=== PATIENT | female | born 1960 | race Asian ===

== ENCOUNTER 2017-05-17 12:23 | Emergency (ER) | payer OTHER ==
[2017-05-17 15:01] VITALS: BP 137/88
--- NOTE | 2017-05-17 15:02 | UC ---
Abdominal Pain Female HPI - HPI Summary HPI Summary: 57 y/o female presents to the urgent care c/o abdominal pain and multiple episodes of diarrhea for the past 3 days. Pt reports she hasn't eating anything for the past 2 days, only drinking water. Pain now is 6/10 sharp and diffuse in all abdomen w/o any radiation. She also has fever, body aches, nausea and FALLON. Pt denies SOB, chest pain, urinary symptoms, Hx of kidney stones, vaginal discharge, Hx of STD's. - History of Current Complaint Chief Complaint: UCAbdominalPain Stated Complaint: DIARRHEA, ABDOMINAL PAIN, FEVER, AND ACHES Time Seen by Provider: 05/17/17 14:49 Hx Obtained From: Patient Hx Last Menstrual Period: menopausal ?: No Onset/Duration: Gradual Onset, Lasting Days - 3 days, Still Present, Worse Since - 2 days Timing: Constant Severity Initially: Moderate Severity Currently: Moderate Pain Intensity: 6 Pain Scale Used: 0-10 Numeric Location: Diffuse Radiates: No Character: Sharp Aggravating Factor(s): Other: - laying down Alleviating Factor(s): OTC Analgesics Associated Signs and Symptoms: Positive: Fever, Diarrhea - multiple episodes of dirrhea Allergies/Adverse Reactions: Allergies Allergy/AdvReac Type Severity Reaction Status Date / Time Acetaminophen [From Tylenol] Allergy Severe Difficulty Verified 05/17/17 21:46 Breathing PMH/Surg Hx/FS Hx/Imm Hx Previously Healthy: Yes Endocrine History: Dyslipidemia - Surgical History Surgical History: Yes Surgery Procedure, Year, and Place: partial thyroidectomy 2001 - Family History Known Family History: Positive: None - pt denies FMHX - Social History Occupation: Employed Full-time Lives: Alone Alcohol Use: None Substance Use Type: None Smoking Status (MU): Never Smoked Tobacco Have You Smoked in the Last Year: No - Immunization History Most Recent Influenza Vaccination: none Review of Systems Constitutional: Fever, Chills, Fatigue Skin: Negative Eyes: Negative ENT: Negative Respiratory: Negative Cardiovascular: Negative Gastrointestinal: Abdominal Pain - diffuse, Diarrhea - multiple episodes, Nausea Genitourinary: Negative Motor: Negative Musculoskeletal: Negative Neurological: Headache Psychological: Negative Is Patient Immunocompromised?: No All Other Systems Reviewed And Are Negative: Yes Physical Exam Triage Information Reviewed: Yes Vital Signs: Initial Vital Signs Temp 97.4 F 05/17/17 12:44 Pulse 101 05/17/17 12:44 Resp 18 05/17/17 12:44 BP 113/75 05/17/17 12:44 Pulse Ox 100 05/17/17 12:44 - Additional Comments Vital Signs Reviewed: Yes General:Patient is a well developed and nourished thin female who is sitting in the examining table crying with apparent pain distress. Eyes: Positive: Conjunctiva Clear - PERRLA, EOMI, fundi grossly normal ENT: Positive: Normal ENT inspection, Hearing grossly normal, Pharynx normal, TMs normal Neck: Positive: Supple, Nontender, No Lymphadenopathy Respiratory: Positive: Chest non-tender, Lungs clear, Normal breath sounds, No respiratory distress Cardiovascular: Positive: RRR,S1 and S2 present, No Murmur, Pulses Normal, Brisk Capillary Refill Abdomen Description: Positive: Abd: Flat with no distention. No surface trauma, scars, incisions. hyperactive bowel sounds present in all four quadrants. tenderness to palpation in all quadrants LF>RT, no guarding, rigidity to palpation. No masses palpated, no pulsation in epigastric area. No organomegaly. Negative Castile signs. No periumbilical tenderness. No rebound in the lower quadrants. mild Tenderness over McBurneys point. Good femoral pulses bilaterally. No hernia noted. No CVAT bilaterally Musculoskeletal: Positive: Strength Intact, ROM Intact, No Edema,FROM in all major joints, no edema, no cyanosis or clubbing. Neuro: Alert and oriented x 3. No acute neurological deficits. Speech is normal. Psycological: WNL Skin: Dry and warm Abd Pain Female Course/Dx - Course Course Of Treatment: 57 y/o female presents to the urgent care c/o abdominal pain and multiple episodes of diarrhea for the past 3 days. Pt reports she hasn' t eating anything for the past 2 days, only drinking water. Pain now is 6/10 sharp and diffuse in all abdomen w/o any radiation. She also has fever, body aches, nausea and FALLON. Pt denies SOB, chest pain, urinary symptoms, Hx of kidney stones, vaginal discharge, Hx of STD's, blood in the stool. Hx obtained. Pt with postive RLQ and LLQ tenderness on palpation LF>RT , no guarding. Pt is tachycardic, and anxious due to pain. Dr Willis consulted on Pt's symptoms and he recommended Pt to go to the ER to r/o appendicitis or Diverticulitis or further evaluation and treatment. Pt offered ambulance transfer and Pt declined and states she will go by private car. Pt advised on the risks of not going to the ER. Pt understood and agreed with plan of care and stated she will go immediately to ER. Pt left the clinic hemodynamically stable and A&OX3 - Differential Dx/Diagnosis Differential Diagnosis: Appendicitis, Diverticulitis, Gall Bladder Disease, Renal Colic, Urinary Tract Infection Provider Diagnoses: 1- Acute abdominal pain. 2- diarrhea. 3-Headache - Physician Notification/Consults Discussed Care of Patient With: Tomas Willis - DR Willis agreed with Pt's plan of care Discharge - Discharge Plan Condition: Stable Disposition: OTHER Discharge Disposition Comment: Highly recommended Pt to go to [facility] ER for further treatment. Patient Education Materials: Acute Abdominal Pain (ED) Forms: *Work Release Referrals: No Primary Care Phys,NOPCP [Primary Care Provider] - Additional Instructions: I strongly recommend you to go to the [facility] ER for further evaluation and treatment to r/o appendicitis, or diverticulitis. The risks of not going can be or sepsis. You declined ambulance transfer.
== END 2017-05-17 15:38 ==
LOC: UCEAST 12:23
DX: R10.31 Right lower quadrant pain (principal); R10.32 Left lower quadrant pain; R19.7 Diarrhea, unspecified; R51 Headache
CPT/HCPCS: 81003; 99212; G0463

== ENCOUNTER 2017-05-17 16:07 | Emergency (ER) | payer OTHER ==
[2017-05-17] MEDS ORDERED: Ondansetron INJ* 2 MG/ML VIAL IV ONE (19:29)
[2017-05-17] MEDS ORDERED: NS 0.9% 1000 ML* 1,000 ML IV ONE (19:29)
[2017-05-17] MEDS ORDERED: Morphine INJ* 2 MG/ML 1 ML CARPUJECT IV ONE ×2 (19:29→19:59)
[2017-05-17] MEDS ORDERED: Morphine INJ* 2 MG/ML 1 ML SYRINGE (TWO MG - NEW SYRINGE VERSION) ONE (19:58)
[2017-05-17 20:01] LABS: Hematocrit 42 % (35-47); Hemoglobin 14.2 g/dl (12.0-16.0); Mean Corpuscular HGB Conc 34 g/dl (31-36); Mean Corpuscular Hemoglobin 29 pg (27-31); Mean Corpuscular Volume 86 fL (80-97); Mean Platelet Volume 7 um3 (7.4-10.4); Red Blood Count 4.89 10^6/ul (4.0-5.4); Red Cell Distribution Width 14 % (10.5-15); White Blood Count 8.7 10^3/ul (3.5-10.8)
[2017-05-17 20:15] LABS: BUN/Creatinine Ratio 15.9 (8-20); Calcium 8.9 mg/dL (8.6-10.3); EGFR African American 124.8 (>60); EGFR Non-African American 97.1 (>60); Globulin 3.1 g/dL (2-4); Potassium 3.3 mmol/L (3.5-5.0); Total Bilirubin 0.9 mg/dL (0.2-1.0); Total Protein 7.1 g/dL (6.4-8.9)
[2017-05-17] MEDS ORDERED: Potassium Chlor TAB* 20 MEQ TAB.ER PO ONE (20:16)
--- NOTE | 2017-05-17 20:52 | RAD ---
HISTORY: Fever COMPARISONS: October 24, 2004 VIEWS: 4: Frontal dual-energy and lateral views of the chest. FINDINGS: CARDIOMEDIASTINAL SILHOUETTE: The cardiomediastinal silhouette is normal. JOSEPHINE: The ojsephine are normal. PLEURA: The costophrenic angles are sharp. No pleural abnormalities are noted. LUNG PARENCHYMA: There is hyperinflation with flattening of the diaphragm and expansion of the AP diameter of the chest. ABDOMEN: The upper abdomen is clear. There is no subphrenic gas. BONES AND SOFT TISSUES: No bone or soft tissue abnormalities are noted. OTHER: None. IMPRESSION: HYPERINFLATION. NO ACTIVE CARDIOPULMONARY DISEASE.
[2017-05-17] MEDS ORDERED: Iohexol 300* (CONTRAST) 10 ML SDV IV ONE (21:16)
[2017-05-17 21:35] VITALS: BP 100/73
--- NOTE | 2017-05-17 22:04 | RAD ---
CLINICAL HISTORY: Diffuse abdominal pain COMPARISON: None TECHNIQUE: Multiple contiguous axial CT scans were obtained of the abdomen and pelvis after the administration of intravenous contrast. Coronal and sagittal multiplanar reformations are submitted for review. Oral contrast was administered. Delayed images were obtained through the abdomen and pelvis. FINDINGS: LUNG BASES: The lung bases are clear. LIVER: The liver is diffusely low in attenuation compared to the spleen. There are no focal hepatic parenchymal masses. BILE DUCTS: There is no intrahepatic or extrahepatic biliary dilatation. GALLBLADDER: The gallbladder is normal, without pericholecystic inflammatory change. PANCREAS: The pancreas is normal, without mass or ductal dilatation. SPLEEN: Normal in size and appearance. UPPER GI TRACT: Evaluation of the gastrointestinal tract is limited by incomplete gastric distention. There is low-attenuation fluid within the body of the stomach. While this may represent ingested food, mucosal thickening may give a similar appearance. SMALL BOWEL AND MESENTERY: The small bowel is normal in contour, course, and caliber. There is no obstruction or dilatation. COLON: There is diffuse mucosal thickening of the ascending colon. There is a tubular, vermiform, hollow viscus that is blind ending, and originates from the cecum, consistent with a normal appendix. There is no periappendiceal inflammatory change. This is best seen on axial images 46 through 52. ADRENALS: Normal bilaterally. KIDNEYS: The kidneys are normal in shape, size, contour, and axis. There is no hydronephrosis or nephrolithiasis. BLADDER: The bladder is smooth in contour. PELVIC ORGANS: The uterus and adnexa are grossly normal for technique. AORTA: The aorta is normal. IVC: Unremarkable LYMPH NODES: There is no lymphadenopathy by size criteria. ABDOMINAL WALL: There is no evidence for abdominal wall hernia. BONES AND SOFT TISSUES: There are mild diffuse degenerative changes. OTHER: None IMPRESSION: 1. MUCOSAL THICKENING OF THE ASCENDING COLON SUGGESTIVE OF COLITIS. 2. NORMAL APPENDIX. 3. THERE IS LOW-ATTENUATION MATERIAL WITHIN THE LUMEN OF THE STOMACH WHICH LIKELY REPRESENTS INGESTED FOOD, THOUGH EVALUATION IS LIMITED ON CT AND MUCOSAL THICKENING MAY GIVE A SIMILAR APPEARANCE. RECOMMEND CONSIDERATION OF CORRELATION WITH DIRECT VISUALIZATION OR DOUBLE CONTRAST FLUOROSCOPY STUDY AND THE NONACUTE SETTING. 4. FATTY LIVER
[2017-05-17] MEDS ORDERED: Omeprazole CAP* 20 MG PO ONE (22:19)
--- NOTE | 2017-05-17 22:51 | ED ---
Brody Pennington Stephanie, scribed for León Jimenez on 05/17/17 at 1937 . Abdominal Pain/Female - HPI Summary HPI Summary: The pt is a 57 y/o F presenting to the ED with c/o abdominal pain that began 3 days ago. Symptoms include fever that began two days ago, nausea, diarrhea (for 2 days), and feeling very cold. The pt denies vomiting or the recent use of abx. She reports not eating for two days. - History of Current Complaint Chief Complaint: EDAbdPain Stated Complaint: VOMITING/DIARRHEA Time Seen by Provider: 05/17/17 19:17 Hx Obtained From: Patient Hx Last Menstrual Period: menopausal Onset/Duration: Lasting Days - 3, Still Present Timing: Constant Pain Intensity: 6 Pain Scale Used: 0-10 Numeric Location: Diffuse Aggravating Factor(s): Food Alleviating Factor(s): Nothing Associated Signs and Symptoms: Positive: Fever, Decreased Appetite, Nausea, Diarrhea, Other: - feeling cold. Negative: Vomiting Allergies/Adverse Reactions: Allergies Allergy/AdvReac Type Severity Reaction Status Date / Time Acetaminophen [From Tylenol] Allergy Severe Difficulty Verified 05/17/17 21:46 Breathing PMH/Surg Hx/FS Hx/Imm Hx Previously Healthy: No Endocrine/Hematology History: Reports: Hx Thyroid Disease - hx of thyroid tumor - noncancerous Sensory History: Denies: Hx Deafness Opthamlomology History: Denies: Hx Legally Blind EENT History: Denies: Hx Deafness - Cancer History Hx Chemotherapy: No Hx Radiation Therapy: No - Surgical History Surgery Procedure, Year, and Place: partial thyroidectomy 2001 Infectious Disease History: No Infectious Disease History: Denies: History Other Infectious Disease, Traveled Outside the [place] in Last 30 Days - Family History Known Family History: Positive: Other - no breast CA - Social History Alcohol Use: None Hx Substance Use: No Substance Use Type: Reports: None Hx Tobacco Use: No Smoking Status (MU): Never Smoked Tobacco Have You Smoked in the Last Year: No Review of Systems Positive: Chills. Negative: Fever Positive: Abdominal Pain, Diarrhea, Nausea. Negative: Vomiting All Other Systems Reviewed And Are Negative: Yes Physical Exam - Summary Physical Exam Summary: Appearance: Well appearing, no pain distress Skin: warm, dry, reflects adequate perfusion Head/face: normal Eyes: EOMI, MARLENI ENT: normal Neck: supple, non-tender Respiratory: CTA, breath sounds present Cardiovascular: RRR, pulses symmetrical Abdomen: diffuse tenderness in abdomen Bowel: present Musculoskeletal: normal, strength/ROM intact Neuro: normal, sensory motor intact, A&Ox3 Triage Information Reviewed: Yes Vital Signs On Initial Exam: Initial Vitals Temp Pulse Resp BP Pulse Ox 97.2 F 95 19 113/84 100 05/17/17 16:10 05/17/17 16:10 05/17/17 16:10 05/17/17 16:10 05/17/17 16:10 Vital Signs Reviewed: Yes Diagnostics - Vital Signs Vital Signs Temp Pulse Resp BP Pulse Ox 05/17/17 19:14 87 19 97 05/17/17 19:12 113/81 05/17/17 17:57 98.6 F 100 19 118/81 98 05/17/17 16:10 97.2 F 95 19 113/84 100 - Laboratory Lab Results: Lab Results 05/17/17 05/17/17 05/17/17 Range/Units 19:49 19:49 19:49 WBC 8.7 (3.5-10.8) 10^3/ul RBC 4.89 (4.0-5.4) 10^6/ul Hgb 14.2 (12.0-16.0) g/dl Hct 42 (35-47) % MCV 86 (80-97) fL MCH 29 (27-31) pg MCHC 34 (31-36) g/dl RDW 14 (10.5-15) % Plt Count 217 (150-450) 10^3/ul MPV 7 L (7.4-10.4) um3 Neut % (Auto) 81.2 (38-83) % Lymph % (Auto) 14.2 L (25-47) % [place] % (Auto) 3.9 (1-9) % Eos % (Auto) 0 (0-6) % Baso % (Auto) 0.7 (0-2) % Absolute Neuts (auto) 7.1 (1.5-7.7) 10^3/ul Absolute Lymphs (auto) 1.2 (1.0-4.8) 10^3/ul Absolute Monos (auto) 0.3 (0-0.8) 10^3/ul Absolute Eos (auto) 0 (0-0.6) 10^3/ul Absolute Basos (auto) 0.1 (0-0.2) 10^3/ul Absolute Nucleated RBC 0 10^3/ul Nucleated RBC % 0 INR (Anticoag Therapy) 0.90 (0.77-1.02) APTT 29.6 (26.0-36.3) seconds Sodium 134 (133-145) mmol/L Potassium 3.3 L (3.5-5.0) mmol/L Chloride 102 (101-111) mmol/L Carbon Dioxide 23 (22-32) mmol/L Anion Gap 9 (2-11) mmol/L BUN 10 (6-24) mg/dL Creatinine 0.63 (0.51-0.95) mg/dL Est GFR ( Amer) 124.8 (>60) Est GFR (Non-Af Amer) 97.1 (>60) BUN/Creatinine Ratio 15.9 (8-20) Glucose 115 H (70-100) mg/dL Lactic Acid (0.5-2.0) mmol/L Calcium 8.9 (8.6-10.3) mg/dL Total Bilirubin 0.90 (0.2-1.0) mg/dL AST 27 (13-39) U/L ALT 22 (7-52) U/L Alkaline Phosphatase 55 (34-104) U/L Total Protein 7.1 (6.4-8.9) g/dL Albumin 4.0 (3.2-5.2) g/dL Globulin 3.1 (2-4) g/dL Albumin/Globulin Ratio 1.3 (1-3) Lipase 35 (11.0-82.0) U/L /15/17 Range/Units 19:49 WBC (3.5-10.8) 10^3/ul RBC (4.0-5.4) 10^6/ul Hgb (12.0-16.0) g/dl Hct (35-47) % MCV (80-97) fL MCH (27-31) pg MCHC (31-36) g/dl RDW (10.5-15) % Plt Count (150-450) 10^3/ul MPV (7.4-10.4) um3 Neut % (Auto) (38-83) % Lymph % (Auto) (25-47) % [place] % (Auto) (1-9) % Eos % (Auto) (0-6) % Baso % (Auto) (0-2) % Absolute Neuts (auto) (1.5-7.7) 10^3/ul Absolute Lymphs (auto) (1.0-4.8) 10^3/ul Absolute Monos (auto) (0-0.8) 10^3/ul Absolute Eos (auto) (0-0.6) 10^3/ul Absolute Basos (auto) (0-0.2) 10^3/ul Absolute Nucleated RBC 10^3/ul Nucleated RBC % INR (Anticoag Therapy) (0.77-1.02) APTT (26.0-36.3) seconds Sodium (133-145) mmol/L Potassium (3.5-5.0) mmol/L Chloride (101-111) mmol/L Carbon Dioxide (22-32) mmol/L Anion Gap (2-11) mmol/L BUN (6-24) mg/dL Creatinine (0.51-0.95) mg/dL Est GFR ( Amer) (>60) Est GFR (Non-Af Amer) (>60) BUN/Creatinine Ratio (8-20) Glucose (70-100) mg/dL Lactic Acid 0.9 (0.5-2.0) mmol/L Calcium (8.6-10.3) mg/dL Total Bilirubin (0.2-1.0) mg/dL AST (13-39) U/L ALT (7-52) U/L Alkaline Phosphatase (34-104) U/L Total Protein (6.4-8.9) g/dL Albumin (3.2-5.2) g/dL Globulin (2-4) g/dL Albumin/Globulin Ratio (1-3) Lipase (11.0-82.0) U/L Result Diagrams: 05/17/17 19:49 05/17/17 19:49 Lab Statement: Any lab studies that have been ordered have been reviewed, and results considered in the medical decision making process. - Radiology CXR Xray Interpretation: No Acute Changes - HYPERINFLATION. NO ACTIVE CARDIOPULMONARY DISEASE. Radiology Interpretation Completed By: Radiologist - CT Abd/Pelvis CT Interpretation: Positive (See Comments) - 1. MUCOSAL THICKENING OF THE ASCENDING COLON SUGGESTIVE OF COLITIS. 2. NORMAL APPENDIX. 3. THERE IS LOW- ATTENUATION MATERIAL WITHIN THE LUMEN OF THE STOMACH WHICH LIKELY REPRESENTS INGESTED FOOD, THOUGH EVALUATION IS LIMITED ON CT AND MUCOSAL THICKENING MAY GIVE A SIMILAR APPEARANCE. RECOMMEND CONSIDERATION OF CORRELATION WITH DIRECT VISUALIZATION OR DOUBLE CONTRAST FLUOROSCOPY STUDY AND THE NONACUTE SETTING. 4. FATTY LIVER CT Interpretation Completed By: Radiologist Abdominal Pain Fem Course/Dx - Course Course Of Treatment: The pt is a 57 y/o F presenting to the ED with c/o abdominal pain that began 3 days ago. Bloodwork/ UA obtained.pt has colitis and diarrhea and no acute abdomen at present. Pt will be discharged home and is advised to follow up with PCP in 3 days. - Diagnoses Provider Diagnoses: Diarrhea, Colitis Discharge - Discharge Plan Condition: Fair Disposition: HOME Prescriptions: Pantoprazole TAB (NF) [Protonix TAB (NF)] 40 mg PO DAILY #30 tab Patient Education Materials: Acute Diarrhea (ED), Colitis (ED) Forms: *Work Release Referrals: Jadiel Vázquez MD [Primary Care Provider] - The documentation as recorded by the Brody andujar Stephanie accurately reflects the service I personally performed and the decisions made by , León Jimenez.
== END 2017-05-17 22:45 | disposition home or self-care (01) ==
LOC: ED 16:07
DX: R19.7 Diarrhea, unspecified (principal); K52.9 Noninfective gastroenteritis and colitis, unspecified; R50.9 Fever, unspecified; R11.0 Nausea
CPT/HCPCS: 36415; 71020; 74177; 80053; 83605; 83690; 85025; 85610; 85730; 87040; 96374; 96375; 99282; A9270-GY; J2270; J2405; Q9967